=== PATIENT | male | born 1980 | race African-American/Black ===

== ENCOUNTER 2020-02-17 19:09 | Emergency (ER) | payer OTHER, MEDICAID ==
[~2020-02-17] VITALS: Ht 180.3 cm; Wt 81.8 kg
[2020-02-17 20:54] VITALS: BP 131/86
[2020-02-17 21:54] LABS: HEMATOCRIT. 34.2 % (42.0-52.0); HEMOGLOBIN. 11.4 g/dL (14.0-18.0); MEAN CORPUSCULAR HEMOGLOBIN 27.9 pg (28.0-32.0); MEAN CORPUSCULAR VOLUME 83.9 fL (80.0-94.0); PLATELET 165 x1000/uL (130-400); RED BLOOD CELL COUNT 4.08 mill/uL (4.7-6.1); RED CELL DISTRIBUTION WIDTH 16.3 % (11.6-14.6)
[2020-02-17 22:05] LABS: CHLORIDE 96 mEq/L (98-107)
[2020-02-17 22:07] LABS: INR 1.1; PROTHROMBIN TIME 11.6 sec (9.6-11.0)
[2020-02-17 22:40] LABS: PLATELET ESTIMATE NORMAL
[2020-02-17] MEDS ORDERED: ACETAMINOPHEN 325MG TABLET PO ONE (23:15)
[2020-02-17] MEDS ORDERED: PIPERACILLIN/TAZOBACTAM 3.375GM/50ML PREMIX IV SCH (23:15)
== END 2020-02-17 21:38 | disposition left against medical advice (07) ==
LOC: ER 19:09 → CANBEDREQ 02-18 05:30
DX: R50.9 Fever, unspecified (principal); Z53.21 Procedure and treatment not carried out due to patient leaving prior to being seen by health care provider
CPT/HCPCS: 36415; 71045; 80053; 84484; 85025; 87077; 93005; 99285